=== PATIENT | male | born 1940 | race Caucasian/White ===

== ENCOUNTER 2016-07-15 18:38 | Emergency (ER) | payer OTHER, MEDICARE ==
[~2016-07-15] VITALS: Ht 172.7 cm; Wt 108.3 kg
[~2016-07-15 18:38] MED LIST: AFEDITAB CR60 MG PO; AMBIEN5 MG PO; ANALGESIC325 MG PO; CO Q-1010 MG PO; COUMADIN3 MG PO; COZAAR25 MG PO; CRESTOR20 MG PO; CRESTOR40 MG PO; ELIQUIS5 MG PO; FLEXERIL10 MG PO; Flagyl PO; IMDUR30 MG PO; ISOSORBIDE MONO30 MG PO; LO-DOSE ASPIRIN81 M1 PO; NORVASC5 MG PO; OMEGA 3-6-91200 MG PO; PRAVASTATIN SOD20 MG PO; PRILOSEC PO; PROTONIX40 M1 PO; PROTONIX40 MG PO; SERTRALINE HCL50 MG PO; TOPROL XL100 MG PO; TOPROL XL6.25 MG PO; XARELTO20 MG PO
[2016-07-15] MEDS ORDERED: HYDROCHLOROTHIA25 MG PO (19:22)
[2016-07-15] MEDS ORDERED: DILTIAZEM 24HR240 MG PO (19:22)
[2016-07-15] MEDS ORDERED: DILTIAZEM 24HR120 MG PO (19:24)
[2016-07-15 19:42] LABS: HEMATOCRIT 40.7 % (38.0-50.0); MCH 31.5 PG (29.0-34.0); MCHC 34.6 G/DL (30.0-36.0); MCV 91.1 FL (86-99); MEAN PLAT.VOLUME 9.2 uM^3 (9.0-12.4); PLATELET COUNT 216 K/uL (156-360); RBC DIS.WIDTH-CV 13.3 % (11.8-14.6); RBC DIS.WIDTH-SD 43.1 % (39-53); RED BLOOD COUNT 4.47 M/uL (4.00-5.50); WHITE BLOOD COUNT 6.9 K/uL (4.1-10.2)
[2016-07-15 19:55] LABS: CHLORIDE 108 mEq/L (99-109); POTASSIUM 4.2 mEq/L (3.7-5.4); SODIUM 143 mEq/L (136-147)
[2016-07-15 19:57] LABS: GLUCOSE 112 mg/dL (70-99)
[2016-07-15 19:58] LABS: ANION GAP 9 MEQ/L (2-14)
[2016-07-15 19:59] LABS: TOTAL BILIRUBIN 0.6 mg/dL (0.0-1.0)
[2016-07-15 20:00] LABS: ALKALINE PHOSPHATASE 62 IU/L (3-129)
[2016-07-15 20:01] LABS: GFR ESTIMATE (CALCULATED) 52 mL/min/
[2016-07-15 20:02] LABS: UREA NITROGEN (BUN) 27 mg/dL (9-23)
[2016-07-15] MEDS ORDERED: ZITHROMAX Z-PA250 MG PO (20:56)
[2016-07-15 21:11] VITALS: BP 135/63
== END 2016-07-15 21:13 | disposition home or self-care (01) ==
LOC: EME 18:38
PROVIDERS: Physician Assistant
DX: S80.811A Abrasion, right lower leg, initial encounter (principal); S80.812A Abrasion, left lower leg, initial encounter; S10.91XA Abrasion of unspecified part of neck, initial encounter; W55.03XA Scratched by cat, initial encounter; T78.40XA Allergy, unspecified, initial encounter; R20.2 Paresthesia of skin; I10 Essential (primary) hypertension; E78.5 Hyperlipidemia, unspecified; I48.91 Unspecified atrial fibrillation; I25.10 Atherosclerotic heart disease of native coronary artery without angina pectoris; Z79.01 Long term (current) use of anticoagulants; Z95.5 Presence of coronary angioplasty implant and graft; Z95.1 Presence of aortocoronary bypass graft; Z79.82 Long term (current) use of aspirin; Z87.891 Personal history of nicotine dependence
CPT/HCPCS: 80053; 85027; 93005; 99281; 99284

== ENCOUNTER 2016-07-25 10:19 | Emergency (ER) | payer OTHER, MEDICARE ==
[~2016-07-25] VITALS: Ht 172.7 cm; Wt 105.7 kg
[~2016-07-25 10:19] MED LIST changes: +DILTIAZEM 24HR120 MG PO; +DILTIAZEM 24HR240 MG PO; +HYDROCHLOROTHIA25 MG PO; +ZITHROMAX Z-PA250 MG PO
[2016-07-25 11:36] LABS: CHLORIDE 107 mEq/L (99-109); SODIUM 139 mEq/L (136-147)
[2016-07-25 11:38] LABS: GLUCOSE 113 mg/dL (70-99)
[2016-07-25 11:39] LABS: ANION GAP 6 MEQ/L (2-14)
[2016-07-25 11:41] LABS: HEMATOCRIT 42.4 % (38.0-50.0); MCH 31.2 PG (29.0-34.0); MCHC 34.7 G/DL (30.0-36.0); MEAN PLAT.VOLUME 8.9 uM^3 (9.0-12.4); PLATELET COUNT 216 K/uL (156-360); RBC DIS.WIDTH-CV 13.6 % (11.8-14.6); RBC DIS.WIDTH-SD 43.7 % (39-53); RED BLOOD COUNT 4.71 M/uL (4.00-5.50)
[2016-07-25 11:42] LABS: GFR ESTIMATE (CALCULATED) > 59 mL/min/; UREA NITROGEN (BUN) 22 mg/dL (9-23); WHITE BLOOD COUNT 10.3 K/uL (4.1-10.2)
[2016-07-25 11:47] LABS: PROTHROMBIN TIME 64.1 (9.2-11.2)
[2016-07-25 12:54] VITALS: BP 142/81
== END 2016-07-25 13:22 | disposition home or self-care (01) ==
LOC: EME 10:19
PROVIDERS: Emergency Medicine
DX: R04.0 Epistaxis (principal); D68.9 Coagulation defect, unspecified; R51 Headache; Z79.01 Long term (current) use of anticoagulants; E78.5 Hyperlipidemia, unspecified; I10 Essential (primary) hypertension; K21.9 Gastro-esophageal reflux disease without esophagitis; Z86.73 Personal history of transient ischemic attack (TIA), and cerebral infarction without residual deficits; Z85.828 Personal history of other malignant neoplasm of skin; I25.10 Atherosclerotic heart disease of native coronary artery without angina pectoris; Z98.61 Coronary angioplasty status; Z95.1 Presence of aortocoronary bypass graft; Z79.82 Long term (current) use of aspirin; Z87.891 Personal history of nicotine dependence
CPT/HCPCS: 70450; 80048; 85027; 85610; 99281; 99285

== ENCOUNTER 2016-07-25 15:13 | Emergency (ER) | payer OTHER, MEDICARE ==
[~2016-07-25] VITALS: Ht 172.7 cm; Wt 105.0 kg
[2016-07-25 16:45] LABS: EOSINOPHIL COUNT 0.4 K/uL (0-0.3); HEMATOCRIT 41.9 % (38.0-50.0); IMMATURE GRANULOCYTE (%) 0.4 % (0.0-0.7); IMMATURE GRANULOCYTE COUNT 0.4 K/uL; LYMPHOCYTE COUNT 2.5 K/uL (1.0-2.8); MCH 31.6 PG (29.0-34.0); MCHC 34.6 G/DL (30.0-36.0); MCV 91.3 FL (86-99); MONOCYTE (%) 7.5 % (3-12); MONOCYTE COUNT 0.7 K/uL (0-0.8); NEUTROPHIL (%) 61.4 % (45-76); NEUTROPHIL COUNT 5.7 K/uL (1.8-6.4); PLATELET COUNT 201 K/uL (156-360); RBC DIS.WIDTH-CV 13.7 % (11.8-14.6); RED BLOOD COUNT 4.59 M/uL (4.00-5.50); WHITE BLOOD COUNT 9.3 K/uL (4.1-10.2)
[2016-07-25 16:56] LABS: CHLORIDE 107 mEq/L (99-109); POTASSIUM 3.6 mEq/L (3.7-5.4); SODIUM 139 mEq/L (136-147)
[2016-07-25 16:57] LABS: GLUCOSE 162 mg/dL (70-99)
[2016-07-25 16:59] LABS: ANION GAP 9 MEQ/L (2-14); PROTHROMBIN TIME 57.7 (9.2-11.2)
[2016-07-25 17:00] LABS: INTER. NORMALIZED RATIO 5.4
[2016-07-25 17:01] LABS: GFR ESTIMATE (CALCULATED) 52 mL/min/
[2016-07-25 17:02] LABS: UREA NITROGEN (BUN) 21 mg/dL (9-23)
[2016-07-25 18:03] VITALS: BP 118/72
== END 2016-07-25 18:08 | disposition home or self-care (01) ==
LOC: EME 15:13
PROVIDERS: Emergency Medicine
DX: R04.0 Epistaxis (principal); Z79.01 Long term (current) use of anticoagulants; E78.5 Hyperlipidemia, unspecified; I10 Essential (primary) hypertension; K21.9 Gastro-esophageal reflux disease without esophagitis; Z85.828 Personal history of other malignant neoplasm of skin; Z86.73 Personal history of transient ischemic attack (TIA), and cerebral infarction without residual deficits; I25.10 Atherosclerotic heart disease of native coronary artery without angina pectoris; Z95.1 Presence of aortocoronary bypass graft; Z98.61 Coronary angioplasty status; Z79.82 Long term (current) use of aspirin; Z87.891 Personal history of nicotine dependence
CPT/HCPCS: 80048 91; 85025; 85610; 99281; 99284

== ENCOUNTER 2016-07-31 14:10 | Observation (INO) | payer OTHER, MEDICARE ==
[~2016-07-31] VITALS: Ht 172.7 cm; Wt 107.0 kg
[2016-07-31 16:02] LABS: EOSINOPHIL (%) 3.1 % (0-5); EOSINOPHIL COUNT 0.3 K/uL (0-0.3); HEMATOCRIT 39.8 % (38.0-50.0); IMMATURE GRANULOCYTE (%) 0.1 % (0.0-0.7); IMMATURE GRANULOCYTE COUNT 0.1 K/uL; MCH 31.3 PG (29.0-34.0); MCHC 34.7 G/DL (30.0-36.0); MCV 90.2 FL (86-99); MEAN PLAT.VOLUME 9.1 uM^3 (9.0-12.4); MONOCYTE (%) 7.6 % (3-12); MONOCYTE COUNT 0.7 K/uL (0-0.8); NEUTROPHIL (%) 68.8 % (45-76); NEUTROPHIL COUNT 6.7 K/uL (1.8-6.4); PLATELET COUNT 203 K/uL (156-360); RBC DIS.WIDTH-CV 13.3 % (11.8-14.6); RBC DIS.WIDTH-SD 42.6 % (39-53); RED BLOOD COUNT 4.41 M/uL (4.00-5.50); WHITE BLOOD COUNT 9.7 K/uL (4.1-10.2)
[2016-07-31 16:19] LABS: ADD MIUA? NO; BILIRUBIN NEGATIVE; BLOOD NEGATIVE; COLOR YELLOW ((YELLOW)); GLUCOSE (STRIP) NEGATIVE; KETONES NEGATIVE; LEUKOCYTES NEGATIVE; NITRITE NEGATIVE; PROTEIN (STRIP) NEGATIVE; SPECIFIC GRAVITY 1.016 (1.000-1.030); UCUL ADDED? NO; UROBILINOGEN 0.2 MG/DL (0.2-1.0)
[2016-07-31 16:22] LABS: CHLORIDE 107 mEq/L (99-109); POTASSIUM 4.1 mEq/L (3.7-5.4); SODIUM 142 mEq/L (136-147)
[2016-07-31 16:24] LABS: GLUCOSE 118 mg/dL (70-99)
[2016-07-31 16:26] LABS: ANION GAP 9 MEQ/L (2-14); TOTAL BILIRUBIN 0.7 mg/dL (0.0-1.0)
[2016-07-31 16:28] LABS: ALKALINE PHOSPHATASE 60 IU/L (3-129); GFR ESTIMATE (CALCULATED) 57 mL/min/
[2016-07-31 16:29] LABS: UREA NITROGEN (BUN) 25 mg/dL (9-23)
[2016-07-31 16:30] LABS: TROP-I INTERPRETATION NEGATIVE; TROPONIN-I 0.01 ng/mL (0.0-0.30)
[2016-07-31 16:31] LABS: INTER. NORMALIZED RATIO 1.9; PROTHROMBIN TIME 20.1 (9.2-11.2); PTT 33.5 (25-32)
[2016-07-31] MEDS ORDERED: COUMADIN3 MG PO (18:15)
[2016-07-31] MEDS ORDERED: PRAVACHOL40 MG PO (18:16)
[2016-07-31 20:00] VITALS: BP 137/86
[2016-07-31 20:09] VITALS: BP 148/55
[2016-07-31 20:11] LABS: Estimated Average Glucose 128 mg/dL (70-123); HEMOGLOBIN A1c (GLYCOHEMOGLOB) 6.1 % HGB (Below 5.7)
[2016-07-31 20:12] LABS: HDL CHOLESTEROL 31 MG/DL (Desirable>=40); LDL CHOLESTEROL 76 mg/dL (Desirable<100); NON-HDL CHOLESTEROL 106 mg/dL (Desirable<160); TOTAL CHOLESTEROL 137 mg/dL (Desirable<200); TRIGLYCERIDES 151 MG/DL (Normal: <150)
[2016-08-01 00:38] VITALS: BP 131/68
[2016-08-01 05:23] VITALS: BP 151/75
[2016-08-01 06:56] LABS: INTER. NORMALIZED RATIO 2.3
[2016-08-01] MEDS ORDERED: XARELTO20 MG PO (12:20)
[2016-08-01 12:30] VITALS: BP 148/68
== END 2016-08-01 14:33 | disposition home or self-care (01) ==
LOC: EME → EDBD 14:10 → EDOF 18:17 → 5WEST 19:40
PROVIDERS: Emergency Medicine; Hospitalist
DX: R55 Syncope and collapse (principal); R42 Dizziness and giddiness; I25.10 Atherosclerotic heart disease of native coronary artery without angina pectoris; Z95.5 Presence of coronary angioplasty implant and graft; I48.0 Paroxysmal atrial fibrillation; I10 Essential (primary) hypertension; E78.5 Hyperlipidemia, unspecified; J44.9 Chronic obstructive pulmonary disease, unspecified; K21.9 Gastro-esophageal reflux disease without esophagitis; Z86.73 Personal history of transient ischemic attack (TIA), and cerebral infarction without residual deficits; Z79.01 Long term (current) use of anticoagulants; Z85.46 Personal history of malignant neoplasm of prostate; Z85.828 Personal history of other malignant neoplasm of skin; Z87.891 Personal history of nicotine dependence; Z81.8 Family history of other mental and behavioral disorders; Z82.0 Family history of epilepsy and other diseases of the nervous system; Z82.49 Family history of ischemic heart disease and other diseases of the circulatory system; Z88.8 Allergy status to other drugs, medicaments and biological substances
CPT/HCPCS: 70551; 71020; 80053; 80061; 81003; 83036; 84484; 85025; 85610; 85730; 93005; 93880; 99281; 99285; G0378

== ENCOUNTER 2016-10-31 15:54 | Observation (INO) | payer OTHER, MEDICARE ==
[~2016-10-31] VITALS: Ht 172.7 cm; Wt 111.4 kg
[~2016-10-31 15:54] MED LIST changes: +PRAVACHOL40 MG PO
[2016-10-31 17:37] LABS: HEMATOCRIT 41.4 % (38.0-50.0); MCH 31.3 PG (29.0-34.0); MCHC 34.3 G/DL (30.0-36.0); MCV 91.2 FL (86-99); MEAN PLAT.VOLUME 9.1 uM^3 (9.0-12.4); PLATELET COUNT 200 K/uL (156-360); RBC DIS.WIDTH-CV 12.3 % (11.8-14.6); RBC DIS.WIDTH-SD 41.1 % (39-53); RED BLOOD COUNT 4.54 M/uL (4.00-5.50); WHITE BLOOD COUNT 7.5 K/uL (4.1-10.2)
[2016-10-31 17:52] LABS: CHLORIDE 106 mEq/L (99-109); POTASSIUM 3.7 mEq/L (3.7-5.4); SODIUM 140 mEq/L (136-147)
[2016-10-31 17:54] LABS: GLUCOSE 154 mg/dL (70-99)
[2016-10-31 17:55] LABS: ANION GAP 10 MEQ/L (2-14)
[2016-10-31 17:57] LABS: GFR ESTIMATE (CALCULATED) 57 mL/min/; TROP-I INTERPRETATION NEGATIVE; TROPONIN-I 0.01 ng/mL (0.0-0.30)
[2016-10-31 17:58] LABS: UREA NITROGEN (BUN) 18 mg/dL (9-23)
[2016-10-31] MEDS ORDERED: VALSARTAN40 MG PO (19:06)
[2016-10-31] MEDS ORDERED: LO-DOSE ASPIRIN81 M1 PO (19:07)
[2016-10-31 22:21] VITALS: BP 132/84
[2016-10-31 22:42] LABS: SAMPLE HEMOLYSIS CHECK 0; SAMPLE ICTERIC CHECK 0; SAMPLE LIPEMIA CHECK 0
[2016-10-31 22:47] LABS: HDL CHOLESTEROL 34 MG/DL (Desirable>=40); LDL CHOLESTEROL 61 mg/dL (Desirable<100); NON-HDL CHOLESTEROL 81 mg/dL (Desirable<160); TOTAL CHOLESTEROL 115 mg/dL (Desirable<200); TRIGLYCERIDES 102 MG/DL (Normal: <150)
[2016-11-01 04:00] VITALS: BP 135/98
[2016-11-01 06:06] LABS: HEMATOCRIT 41.9 % (38.0-50.0); MCH 31.3 PG (29.0-34.0); MCHC 34.1 G/DL (30.0-36.0); MCV 91.7 FL (86-99); PLATELET COUNT 193 K/uL (156-360); RBC DIS.WIDTH-CV 12.3 % (11.8-14.6); RBC DIS.WIDTH-SD 41.1 % (39-53); RED BLOOD COUNT 4.57 M/uL (4.00-5.50)
[2016-11-01 06:33] LABS: ALKALINE PHOSPHATASE 50 IU/L (3-129); ANION GAP 4 MEQ/L (2-14); CHLORIDE 104 MEQ/L (99-109); GFR ESTIMATE (CALCULATED) 57 mL/min/; GLUCOSE 129 mg/dL (70-99); POTASSIUM 3.9 MEQ/L (3.7-5.4); SAMPLE HEMOLYSIS CHECK 0; SAMPLE ICTERIC CHECK 0; SAMPLE LIPEMIA CHECK 0; SODIUM 139 MEQ/L (136-147); TOTAL BILIRUBIN 0.7 MG/DL (0.0-1.0); UREA NITROGEN (BUN) 18 mg/dL (9-23)
[2016-11-01 07:41] VITALS: BP 152/95
[2016-11-01 11:38] VITALS: BP 154/74
== END 2016-11-01 14:15 | disposition home or self-care (01) ==
LOC: EME 15:54 → EDOF 20:46 → 5SOUTH 20:46
PROVIDERS: Emergency Medicine; Internal Medicine
DX: G45.9 Transient cerebral ischemic attack, unspecified (principal); I65.22 Occlusion and stenosis of left carotid artery; I48.0 Paroxysmal atrial fibrillation; I12.9 Hypertensive chronic kidney disease with stage 1 through stage 4 chronic kidney disease, or unspecified chronic kidney disease; N18.3 Chronic kidney disease, stage 3 (moderate); I25.10 Atherosclerotic heart disease of native coronary artery without angina pectoris; N40.0 Benign prostatic hyperplasia without lower urinary tract symptoms; E78.5 Hyperlipidemia, unspecified; K21.9 Gastro-esophageal reflux disease without esophagitis; Z87.891 Personal history of nicotine dependence; Z86.73 Personal history of transient ischemic attack (TIA), and cerebral infarction without residual deficits; Z79.01 Long term (current) use of anticoagulants; Z95.1 Presence of aortocoronary bypass graft
CPT/HCPCS: 70450; 70551; 71020; 80048; 80053; 80061; 84484; 85027; 93005; 99281; 99285; G0378

== ENCOUNTER 2016-12-07 15:26 | Emergency (ER) | payer OTHER, MEDICARE ==
[~2016-12-07] VITALS: Ht 172.7 cm; Wt 102.3 kg
[~2016-12-07 15:26] MED LIST changes: +VALSARTAN40 MG PO
[2016-12-07 16:22] LABS: MCH 31.1 PG (29.0-34.0); MCHC 33.3 G/DL (30.0-36.0); MCV 93.3 FL (86-99); MEAN PLAT.VOLUME 9.3 uM^3 (9.0-12.4); PLATELET COUNT 249 K/uL (156-360); RBC DIS.WIDTH-CV 12.8 % (11.8-14.6); RBC DIS.WIDTH-SD 43.4 % (39-53); RED BLOOD COUNT 4.18 M/uL (4.00-5.50); WHITE BLOOD COUNT 7.8 K/uL (4.1-10.2)
[2016-12-07 16:36] LABS: CHLORIDE 104 mEq/L (99-109); SODIUM 139 mEq/L (136-147)
[2016-12-07 16:38] LABS: GLUCOSE 153 mg/dL (70-99)
[2016-12-07 16:39] LABS: ANION GAP 9 MEQ/L (2-14)
[2016-12-07 16:42] LABS: GFR ESTIMATE (CALCULATED) 48 mL/min/
[2016-12-07 16:43] LABS: UREA NITROGEN (BUN) 23 mg/dL (9-23)
[2016-12-07] MEDS ORDERED: NORCO 7.5/321 TABLET PO (18:56)
[2016-12-07 19:15] VITALS: BP 121/75
== END 2016-12-07 19:29 | disposition home or self-care (01) ==
LOC: EME 15:26
PROC: 2Y41X5Z Packing of Nasal Region using Packing Material (ICD-10-PCS; principal; 2016-12-07)
DX: R04.0 Epistaxis (principal); I48.91 Unspecified atrial fibrillation; Z98.890 Other specified postprocedural states; Z79.01 Long term (current) use of anticoagulants; I25.10 Atherosclerotic heart disease of native coronary artery without angina pectoris; Z95.1 Presence of aortocoronary bypass graft; Z95.5 Presence of coronary angioplasty implant and graft; I10 Essential (primary) hypertension; E78.5 Hyperlipidemia, unspecified; K21.9 Gastro-esophageal reflux disease without esophagitis; Z86.73 Personal history of transient ischemic attack (TIA), and cerebral infarction without residual deficits; Z85.828 Personal history of other malignant neoplasm of skin; Z87.891 Personal history of nicotine dependence; Z79.82 Long term (current) use of aspirin
CPT/HCPCS: 80048; 85027; 99281; 99284; J3010

== ENCOUNTER 2017-01-16 21:45 | Emergency (ER) | payer OTHER, MEDICARE ==
[~2017-01-16] VITALS: Ht 172.7 cm; Wt 105.1 kg
[~2017-01-16 21:45] MED LIST changes: +NORCO 7.5/321 TABLET PO
[2017-01-16 23:02] LABS: HEMATOCRIT 40.4 % (38.0-50.0); MCH 31.6 PG (29.0-34.0); MCHC 34.4 G/DL (30.0-36.0); MCV 91.8 FL (86-99); PLATELET COUNT 226 K/uL (156-360); RBC DIS.WIDTH-CV 13.6 % (11.8-14.6); RBC DIS.WIDTH-SD 45.6 % (39-53); WHITE BLOOD COUNT 12.6 K/uL (4.1-10.2)
[2017-01-16 23:12] LABS: CHLORIDE 106 mEq/L (99-109); POTASSIUM 4.1 mEq/L (3.7-5.4); SODIUM 140 mEq/L (136-147)
[2017-01-16 23:15] LABS: GLUCOSE 132 mg/dL (70-99)
[2017-01-16 23:16] LABS: ANION GAP 10 MEQ/L (2-14)
[2017-01-16 23:17] LABS: TOTAL BILIRUBIN 1.1 mg/dL (0.0-1.0)
[2017-01-16 23:18] LABS: ALKALINE PHOSPHATASE 76 IU/L (3-129)
[2017-01-16 23:19] LABS: GFR ESTIMATE (CALCULATED) 57 mL/min/
[2017-01-16 23:20] LABS: UREA NITROGEN (BUN) 26 mg/dL (9-23)
[2017-01-16 23:22] LABS: LIPASE 20 U/L (1.0-51.0)
[2017-01-17 00:15] LABS: ADD MIUA? YES; BILIRUBIN NEGATIVE; BLOOD SMALL; COLOR YELLOW ((YELLOW)); GLUCOSE (STRIP) NEGATIVE; KETONES NEGATIVE; LEUKOCYTES NEGATIVE; NITRITE NEGATIVE; PROTEIN (STRIP) NEGATIVE; SPECIFIC GRAVITY 1.039 (1.000-1.030); UROBILINOGEN 0.2 MG/DL (0.2-1.0)
[2017-01-17 00:18] LABS: BACTERIA NONE SEEN /HPF; EPITHELIAL CELLS RARE /HPF; MUCUS TRACE /LPF; RED BLOOD CELLS 0-5 /HPF (0-5); UCUL ADDED? NO; WHITE BLOOD CELLS 0-5 /HPF (0-5)
[2017-01-17 00:31] LABS: TROP-I INTERPRETATION NEGATIVE; TROPONIN-I < 0.01 ng/mL (0.0-0.30)
[2017-01-17] MEDS ORDERED: ZOFRAN ODT4 MG PO (00:51)
[2017-01-17 00:58] VITALS: BP 137/93
== END 2017-01-17 00:59 | disposition home or self-care (01) ==
LOC: EME 21:45
PROVIDERS: Emergency Medicine
DX: K52.9 Noninfective gastroenteritis and colitis, unspecified (principal); E86.0 Dehydration; E78.5 Hyperlipidemia, unspecified; I10 Essential (primary) hypertension; K21.9 Gastro-esophageal reflux disease without esophagitis; Z95.1 Presence of aortocoronary bypass graft; Z95.5 Presence of coronary angioplasty implant and graft; Z85.828 Personal history of other malignant neoplasm of skin; Z87.891 Personal history of nicotine dependence; Z86.73 Personal history of transient ischemic attack (TIA), and cerebral infarction without residual deficits
CPT/HCPCS: 71020; 74177; 80053; 81003; 83605; 83690; 84484; 85027; 93005; 99281; 99285; J2405

== ENCOUNTER 2017-04-30 16:55 | Emergency (ER) | payer OTHER, MEDICARE ==
[~2017-04-30] VITALS: Ht 172.7 cm; Wt 108.8 kg
[~2017-04-30 16:55] MED LIST changes: +ZOFRAN ODT4 MG PO
[2017-04-30 17:45] LABS: HEMATOCRIT 40.6 % (38.0-50.0); MCH 30.6 PG (29.0-34.0); MEAN PLAT.VOLUME 9.3 uM^3 (9.0-12.4); PLATELET COUNT 251 K/uL (156-360); RBC DIS.WIDTH-CV 13.3 % (11.8-14.6); RBC DIS.WIDTH-SD 43.5 % (39-53); RED BLOOD COUNT 4.51 M/uL (4.00-5.50); WHITE BLOOD COUNT 9.5 K/uL (4.1-10.2)
[2017-04-30 18:15] LABS: CHLORIDE 109 mEq/L (99-109); POTASSIUM 3.8 mEq/L (3.7-5.4); SODIUM 143 mEq/L (136-147)
[2017-04-30 18:17] LABS: GLUCOSE 122 mg/dL (70-99)
[2017-04-30 18:18] LABS: ANION GAP 12 MEQ/L (2-14)
[2017-04-30 18:21] LABS: GFR ESTIMATE (CALCULATED) 48 mL/min/
[2017-04-30 18:22] LABS: UREA NITROGEN (BUN) 30 mg/dL (9-23)
[2017-04-30 18:23] LABS: TROP-I INTERPRETATION NEGATIVE; TROPONIN-I 0.01 ng/mL (0.0-0.30)
[2017-04-30 21:07] LABS: TROP-I INTERPRETATION NEGATIVE; TROPONIN-I 0.01 ng/mL (0.0-0.30)
[2017-04-30 22:33] VITALS: BP 149/82
== END 2017-04-30 22:34 | disposition home or self-care (01) ==
LOC: EME 16:55
PROVIDERS: Physician Assistant
DX: R06.00 Dyspnea, unspecified (principal); I13.0 Hypertensive heart and chronic kidney disease with heart failure and stage 1 through stage 4 chronic kidney disease, or unspecified chronic kidney disease; N18.9 Chronic kidney disease, unspecified; I50.9 Heart failure, unspecified; I71.2 Thoracic aortic aneurysm, without rupture; E78.5 Hyperlipidemia, unspecified; K21.9 Gastro-esophageal reflux disease without esophagitis; I25.10 Atherosclerotic heart disease of native coronary artery without angina pectoris; Z95.1 Presence of aortocoronary bypass graft; Z98.61 Coronary angioplasty status; Z86.73 Personal history of transient ischemic attack (TIA), and cerebral infarction without residual deficits; Z85.828 Personal history of other malignant neoplasm of skin; Z87.891 Personal history of nicotine dependence; Z79.01 Long term (current) use of anticoagulants; Z79.82 Long term (current) use of aspirin; Z88.8 Allergy status to other drugs, medicaments and biological substances
CPT/HCPCS: 71020; 71260; 80048; 83880; 84484; 85027; 93005; 99281; 99285; J7030

== ENCOUNTER 2017-07-15 09:11 | Observation (INO) | payer OTHER, MEDICARE ==
[~2017-07-15] VITALS: Ht 172.7 cm; Wt 105.6 kg
[2017-07-15 09:59] LABS: BASOPHIL (%) 0.5 % (0-1); EOSINOPHIL (%) 4.1 % (0-5); EOSINOPHIL COUNT 0.4 K/uL (0-0.3); HEMATOCRIT 42.3 % (38.0-50.0); HEMOGLOBIN 14.3 G/DL (12.5-16.6); IMMATURE GRANULOCYTE (%) 0.2 % (0.0-0.7); LYMPHOCYTE COUNT 2.2 K/uL (1.0-2.8); MCH 30.2 PG (29.0-34.0); MCHC 33.8 G/DL (30.0-36.0); MCV 89.4 FL (86-99); MONOCYTE (%) 7.7 % (3-12); MONOCYTE COUNT 0.7 K/uL (0-0.8); NEUTROPHIL (%) 61.5 % (45-76); NEUTROPHIL COUNT 5.2 K/uL (1.8-6.4); PLATELET COUNT 237 K/uL (156-360); RBC DIS.WIDTH-CV 13.2 % (11.8-14.6); RBC DIS.WIDTH-SD 43.1 % (39-53); RED BLOOD COUNT 4.73 M/uL (4.00-5.50); WHITE BLOOD COUNT 8.5 K/uL (4.1-10.2)
[2017-07-15 10:09] LABS: INTER. NORMALIZED RATIO 1.5
[2017-07-15 10:10] LABS: ALBUMIN 4.4 g/dL (3.2-4.8); CHLORIDE 106 mEq/L (99-109); POTASSIUM 4.2 mEq/L (3.7-5.4); SODIUM 139 mEq/L (136-147)
[2017-07-15 10:11] LABS: MAGNESIUM 2.4 mg/dL (1.3-2.7)
[2017-07-15 10:12] LABS: GLUCOSE 150 mg/dL (70-99); PTT 34.4 SEC (25-37)
[2017-07-15 10:13] LABS: TOTAL PROTEIN 7.3 g/dL (6.4-8.3)
[2017-07-15 10:14] LABS: TOTAL BILIRUBIN 0.7 mg/dL (0.0-1.0)
[2017-07-15 10:16] LABS: ALKALINE PHOSPHATASE 79 IU/L (3-129); CREATININE 1.4 mg/dL (0.6-1.3); GFR ESTIMATE (CALCULATED) 52 mL/min/ (58.99-99999)
[2017-07-15 10:17] LABS: UREA NITROGEN (BUN) 21 mg/dL (9-23)
[2017-07-15 10:18] LABS: AST (GOT) 19 IU/L (2-34)
[2017-07-15 10:19] LABS: ALT (GPT) 18 IU/L (3-49); CREATINE KINASE 283 IU/L (1-294); TOTAL CK 283 IU/L (1-294)
[2017-07-15 10:21] LABS: TROP-I INTERPRETATION NEGATIVE; TROPONIN-I 0.02 ng/mL (0.0-0.30)
[2017-07-15 10:25] LABS: CK-MB 6.1 ng/mL (0.0-4.9); CKMB RELATIVE INDEX 2.2 (0.0-3.9)
[2017-07-15] MEDS ORDERED: METOPROLOL TART25 MG PO (11:51)
[2017-07-15] MEDS ORDERED: FUROSEMIDE40 MG PO (11:51)
[2017-07-15 15:27] LABS: TROP-I INTERPRETATION NEGATIVE; TROPONIN-I 0.01 ng/mL (0.0-0.30)
[2017-07-15] MEDS ORDERED: XARELTO20 MG PO (16:47)
[2017-07-15 17:33] VITALS: BP 188/84
[2017-07-15 20:00] VITALS: BP 140/78
[2017-07-15 21:42] LABS: TROP-I INTERPRETATION NEGATIVE; TROPONIN-I < 0.01 ng/mL (0.0-0.30)
[2017-07-16 00:35] VITALS: BP 140/70
[2017-07-16 04:31] VITALS: BP 141/72
[2017-07-16 06:52] LABS: CHLORIDE 105 MEQ/L (99-109); CREATININE 1.3 MG/DL (0.6-1.3); GFR ESTIMATE (CALCULATED) 57 mL/min/ (58.99-99999); GLUCOSE 137 mg/dL (70-99); POTASSIUM 4.4 MEQ/L (3.7-5.4); SODIUM 142 MEQ/L (136-147); UREA NITROGEN (BUN) 22 mg/dL (9-23)
[2017-07-16 07:30] VITALS: BP 156/92
[2017-07-16] MEDS ORDERED: NITROSTAT0.4 MG SL (10:12)
== END 2017-07-16 11:12 | disposition home or self-care (01) ==
LOC: EME 09:11 → EDOF 12:09 → 5WEST 12:09 → ENRESERV 12:17 → 5WEST 17:30 → ENPENDDIS 07-16 → 5WEST 07-16 11:12
PROVIDERS: Emergency Medicine; Internal Medicine
DX: R07.9 Chest pain, unspecified (principal); I25.10 Atherosclerotic heart disease of native coronary artery without angina pectoris; Z95.1 Presence of aortocoronary bypass graft; Z95.5 Presence of coronary angioplasty implant and graft; I48.2 Chronic atrial fibrillation; I10 Essential (primary) hypertension; E78.5 Hyperlipidemia, unspecified; R94.31 Abnormal electrocardiogram [ECG] [EKG]; Z79.01 Long term (current) use of anticoagulants; Z86.73 Personal history of transient ischemic attack (TIA), and cerebral infarction without residual deficits; K21.9 Gastro-esophageal reflux disease without esophagitis; J44.9 Chronic obstructive pulmonary disease, unspecified; N40.0 Benign prostatic hyperplasia without lower urinary tract symptoms; Z90.49 Acquired absence of other specified parts of digestive tract; Z85.828 Personal history of other malignant neoplasm of skin; Z82.49 Family history of ischemic heart disease and other diseases of the circulatory system; Z82.0 Family history of epilepsy and other diseases of the nervous system; Z87.891 Personal history of nicotine dependence; Z88.8 Allergy status to other drugs, medicaments and biological substances
CPT/HCPCS: 71046; 80048; 80053; 82550; 82553; 83735; 84484; 85025; 85610; 85730; 93005; 93306; 99281; 99285; G0378

== ENCOUNTER → 2017-09-17 | Outpatient (CLI) | payer OTHER, MEDICARE ==
[~2017-09-17] MED LIST changes: +FUROSEMIDE40 MG PO; +METOPROLOL TART25 MG PO; +NITROSTAT0.4 MG SL
== END | disposition home or self-care (01) ==
LOC: RES 12:58
DX: R94.2 Abnormal results of pulmonary function studies (principal)
CPT/HCPCS: 94060; 94726; 94729

== ENCOUNTER 2017-10-08 10:39 | Emergency (ER) | payer OTHER, MEDICARE ==
[~2017-10-08] VITALS: Ht 172.7 cm; Wt 107.4 kg
[2017-10-08 11:58] LABS: HEMATOCRIT 43.7 % (38.0-50.0); HEMOGLOBIN 14.8 G/DL (12.5-16.6); MCH 30.8 PG (29.0-34.0); MCHC 33.9 G/DL (30.0-36.0); PLATELET COUNT 236 K/uL (156-360); RBC DIS.WIDTH-CV 13.7 % (11.8-14.6); RBC DIS.WIDTH-SD 46.4 % (39-53); WHITE BLOOD COUNT 8.1 K/uL (4.1-10.2)
[2017-10-08 12:11] LABS: CHLORIDE 106 mEq/L (99-109); POTASSIUM 3.7 mEq/L (3.7-5.4); SODIUM 143 mEq/L (136-147)
[2017-10-08 12:13] LABS: GLUCOSE 146 mg/dL (70-99)
[2017-10-08 12:17] LABS: CREATININE 1.3 mg/dL (0.6-1.3); GFR ESTIMATE (CALCULATED) 57 mL/min/ (58.99-99999)
[2017-10-08 12:18] LABS: UREA NITROGEN (BUN) 23 mg/dL (9-23)
[2017-10-08] MEDS ORDERED: MEDROL DOSEPAK4 MG PO (15:20)
[2017-10-08 15:36] VITALS: BP 167/88
== END 2017-10-08 15:37 | disposition home or self-care (01) ==
LOC: EME 10:39
DX: R06.02 Shortness of breath (principal); E78.5 Hyperlipidemia, unspecified; I10 Essential (primary) hypertension; I25.10 Atherosclerotic heart disease of native coronary artery without angina pectoris; K21.9 Gastro-esophageal reflux disease without esophagitis; Z85.828 Personal history of other malignant neoplasm of skin; Z86.73 Personal history of transient ischemic attack (TIA), and cerebral infarction without residual deficits; Z95.1 Presence of aortocoronary bypass graft; Z95.5 Presence of coronary angioplasty implant and graft; Z87.891 Personal history of nicotine dependence; Z88.8 Allergy status to other drugs, medicaments and biological substances
CPT/HCPCS: 71046; 80048; 83880; 85027; 93005; 99281; 99284

== ENCOUNTER 2017-12-31 16:57 | Emergency (ER) | payer OTHER, MEDICARE ==
[~2017-12-31] VITALS: Ht 172.7 cm; Wt 105.7 kg
[~2017-12-31 16:57] MED LIST changes: +MEDROL DOSEPAK4 MG PO
[2017-12-31 19:46] LABS: HEMATOCRIT 43.5 % (38.0-50.0); HEMOGLOBIN 14.8 G/DL (12.5-16.6); MCV 91.2 FL (86-99); PLATELET COUNT 232 K/uL (156-360); RBC DIS.WIDTH-CV 13.2 % (11.8-14.6); RBC DIS.WIDTH-SD 44.3 % (39-53); RED BLOOD COUNT 4.77 M/uL (4.00-5.50); WHITE BLOOD COUNT 8.9 K/uL (4.1-10.2)
[2017-12-31 19:54] LABS: INTER. NORMALIZED RATIO 1.7
[2017-12-31 19:57] LABS: PTT 36.9 SEC (25-37)
[2017-12-31 19:58] LABS: CHLORIDE 107 mEq/L (99-109); POTASSIUM 4.1 mEq/L (3.7-5.4); SODIUM 145 mEq/L (136-147)
[2017-12-31 20:00] LABS: GLUCOSE 143 mg/dL (70-99)
[2017-12-31 20:04] LABS: CREATININE 1.6 mg/dL (0.6-1.3); GFR ESTIMATE (CALCULATED) 45 mL/min/ (58.99-99999)
[2017-12-31 20:05] LABS: UREA NITROGEN (BUN) 30 mg/dL (9-23)
[2017-12-31 20:47] VITALS: BP 138/88
== END 2017-12-31 20:48 | disposition home or self-care (01) ==
LOC: EME 16:57
PROVIDERS: Physician Assistant
DX: S00.412A Abrasion of left ear, initial encounter (principal); X58.XXXA Exposure to other specified factors, initial encounter; Z79.01 Long term (current) use of anticoagulants; Z97.4 Presence of external hearing-aid; Z88.8 Allergy status to other drugs, medicaments and biological substances
CPT/HCPCS: 80048; 85027; 85610; 85730; 99281; 99283